=== PATIENT | male | born 2005 | race Caucasian/White ===

== ENCOUNTER 2025-09-19 19:12 | Emergency (ER) | payer MEDICAID ==
[~2025-09-19] VITALS: Ht 162.6 cm; Wt 80.0 kg
[2025-09-19 19:25] VITALS: BP 145/82; PULSE 86; RESP 22; TEMP 98.9; O2SAT 99
[2025-09-19 20:08] LABS: PLATELET COUNT (AUTO) 260 K/uL (150-450); RED BLOOD CELL COUNT(AUTO) 4.79 MIL/uL (4.50-5.90); RED CELL DISTRIBUTION WIDTH 13.7 % (11.5-14.5); WHITE BLOOD COUNT (AUTO) 10.8 K/uL (4.5-11.0)
[2025-09-19 20:18] LABS: CALCIUM, TOTAL 9.5 mg/dL (8.8-10.5); CREATININE 0.86 mg/dL (0.60-1.30); GLOMERULAR FILTR. RATE CALC > 60 mL/min (>60); GLUCOSE,RANDOM 107 mg/dL (70-110); SODIUM SERUM 138 mmol/L (136-145); UREA NITROGEN, BLOOD 12 mg/dL (7-18)
[2025-09-19 20:26] LABS: TROPONIN I-HIGH SENSITIVITY 5 ng/L (<76)
== END 2025-09-19 21:01 | disposition home or self-care (01) ==
LOC: EMS 19:13
DX: F19.10 Other psychoactive substance abuse, uncomplicated (principal); R00.2 Palpitations; F41.9 Anxiety disorder, unspecified; F12.90 Cannabis use, unspecified, uncomplicated; F14.90 Cocaine use, unspecified, uncomplicated
CPT/HCPCS: 99284; 80048; 84484; 85025; 36415; 93005; G0480

== ENCOUNTER 2025-09-26 20:16 | Emergency (ER) | payer MEDICAID ==
[~2025-09-26] VITALS: Ht 165.1 cm; Wt 84.0 kg
[2025-09-26 20:34] VITALS: TEMP 98
[2025-09-26 21:08] LABS: TROPONIN I-HIGH SENSITIVITY 11 ng/L (<76)
[2025-09-26 21:36] LABS: PLATELET COUNT (AUTO) 261 K/uL (150-450); RED BLOOD CELL COUNT(AUTO) 4.84 MIL/uL (4.50-5.90); RED CELL DISTRIBUTION WIDTH 13.6 % (11.5-14.5); WHITE BLOOD COUNT (AUTO) 11.1 K/uL (4.5-11.0)
[2025-09-26 21:45] LABS: CALCIUM, TOTAL 8.9 mg/dL (8.8-10.5); CREATININE 1.04 mg/dL (0.60-1.30); GLOMERULAR FILTR. RATE CALC > 60 mL/min (>60); GLUCOSE,RANDOM 102 mg/dL (70-110); SODIUM SERUM 136 mmol/L (136-145); UREA NITROGEN, BLOOD 17 mg/dL (7-18)
[2025-09-26] MEDS: IBUPROFEN 400 MG TABLET PO ONE (23:08)
[2025-09-26] MEDS: ACETAMINOPHEN 500 MG TABLET PO ONE (23:08)
[2025-09-26 23:25] LABS: COVID AG,FIA SOURCE NASAL SWAB
[2025-09-26 23:41] LABS: SARS-COV2 (COVID) ANTIGEN,FIA Negative (Negative)
[2025-09-26 23:42] LABS: INFLUENZA TYPE A NEGATIVE FOR TYPE A (NEGATIVE); INFLUENZA TYPE B NEGATIVE FOR TYPE B (NEGATIVE)
[2025-09-27 01:00] VITALS: BP 129/88; PULSE 88; RESP 17; O2SAT 99
== END 2025-09-27 01:19 | disposition home or self-care (01) ==
LOC: EMS 20:17
DX: R07.89 Other chest pain (principal); R05.9 Cough, unspecified; R09.81 Nasal congestion; R00.2 Palpitations; F12.90 Cannabis use, unspecified, uncomplicated; F14.90 Cocaine use, unspecified, uncomplicated; Z20.822 Contact with and (suspected) exposure to COVID-19
CPT/HCPCS: 71045; 80048; 84484; 85025; 87804; 93005; 99285; 36415-L1; 36415-TC